=== PATIENT | female | born 1960 | race Caucasian/White ===

== ENCOUNTER 2021-11-27 11:15 | Emergency (ER) | payer OTHER ==
--- NOTE | 2021-11-27 12:26 | ED Physician Documentation ---
PD HPI BACK PAIN - Stated complaint Stated Complaint: LOWER BACK AND LEG PAIN - Chief complaint Chief Complaint: Back Pain - History obtained from History obtained from: Patient - Additional information Additional information: 61-year-old woman had a minor injury about a month ago. She was playing with her grandchildren on an outdoor big toy and kind of bumped into something. Since then she has had severe increasing low back pain radiating to both hips. She feels better bending forward and cannot rotate her pelvis. The pain radiates into both hips and is a burning sensation not associated with weakness, numbness, tingling, saddle anesthesia, incontinence, or fevers. She Yaima had some level of back pain but this is out of proportion to anything she has had before. Currently she has been on very low-dose gabapentin, Celebrex without relief. She is been referred to physical therapy but no openings for physical therapy are open. Review of Systems Constitutional: denies: Fever, Chills Ears: reports: Reviewed and negative Nose: reports: Reviewed and negative Cardiac: reports: Reviewed and negative Respiratory: reports: Reviewed and negative PD PAST MEDICAL HISTORY - Present Medications Home Medications: Ambulatory Orders Medication Instructions Recorded Confirmed Atorvastatin [Lipitor] 10 mg PO DAILY PM 11/27/21 11/27/21 Celecoxib [Celebrex] 200 mg PO DAILY PRN 11/27/21 11/27/21 Cyclobenzaprine HCl 1 - 2 tab PO TID PRN 11/27/21 11/27/21 Gabapentin [Neurontin] 100 mg PO DAILY 11/27/21 11/27/21 Gabapentin [Neurontin] 200 mg PO DAILY PM 11/27/21 11/27/21 Gabapentin [Neurontin] 300 mg PO TID #60 cap 11/27/21 HYDROcod/ACETAM 5/325 [Harmony 5/325] 1 - 2 tab PO Q6H PRN #30 tablet 11/27/21 Lubiprostone [Amitiza] 24 mcg PO ONCE 11/27/21 11/27/21 predniSONE [Deltasone] 20 mg PO [id number] #21 tab 11/27/21 - Allergies Allergies/Adverse Reactions: Allergies Allergy/AdvReac Type Severity Reaction Status Date / Time No Known Drug Allergies Allergy Verified 11/27/21 11:24 PD ED PE NORMAL - Vitals Vital signs reviewed: Yes - General General: Alert and oriented X 3 (Appears slightly uncomfortable and winces with motion of the back.) - Neck Neck: Supple, no meningeal sign, No bony TTP - Abdomen Abdomen: Normal bowel sounds, Soft, Non tender - Back Back: No CVA TTP, No spinal TTP, Other (The patient has equal and normal Achilles and patellar reflexes bilaterally. Normal sensation in all areas of the legs. Patient denies saddle anesthesia. Normal strength in flexion- extension at the ankles, knees, and flexion of the hips.) - Neuro Neuro: Alert and oriented X 3, Normal speech Eye Opening: Spontaneous Motor: Obeys Commands Verbal: Oriented GCS Score: 15 Results - Vitals Vitals: Vital Signs - 24 hr 11/27/21 11:17 Temperature 36.9 C Heart Rate 74 Respiratory 16 Rate Blood Pressure 138/99 H O2 Saturation 99 Oxygen O2 Source Room air PD MEDICAL DECISION MAKING - ED course ED course: Her symptoms are very consistent with spinal stenosis. We discussed pain control and follow-up with spine. No MRI available today, she would like to go ahead with a CAT scan to see what that shows us in the interim. CT of the lumbar spine does show multilevel degenerative disease with foraminal narrowing at multilevels but I think the culprit lesion is the disc herniation at L4/L5 causing moderate central stenosis. She was treated here with IM Dilaudid and Toradol. Given some names of some local neurosurgeons and discussed the expected course of action going forward. I am prescribing a short course of short-acting opioid pain medication for this patient. 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 I have discussed that the opioids are for short term therapy only, and will not be refilled from the ED. Departure - Departure Disposition: 01 Home, Self Care Clinical Impression: Spinal stenosis Condition: Good Record reviewed to determine appropriate education?: Yes Instructions: ED Sciatica Prescriptions: predniSONE [Deltasone] 20 mg PO [id number] #21 tab Gabapentin [Neurontin] 300 mg PO TID #60 cap HYDROcod/ACETAM 5/325 [Harmony 5/325] 1 - 2 tab PO Q6H PRN #30 tablet PRN Reason: Pain Comments: As discussed it is apparent that likely the pain you are having is from the L4/L5 spinal stenosis. It is very reasonable to follow-up with a spine surgeon, either Dr. Otero or Dr. Sandoval as mentioned. I sent your prescriptions electronically to [facility] in [place]. Return for new or worsening symptoms. I am prescribing a short course of narcotic pain medication for you. These are potentially dangerous and addictive medications that should be used carefully. These medications may constipate you. Take an kiam-hrk-yryszgy stool softener (docusate) twice daily with plenty of water while taking these medications. If you go 24 hours without a bowel movement, take nlbh-qjq-vbvtasv miralax, per package instructions. Do not drink or drive while taking these medications. If you received narcotic or sedating medications while in the emergency department, do not drive for 24 hours. Store this medication in a safe, secure place and out of reach of children. It is a violation of federal law to give or sell this medication to another person or to use in a manner other than prescribed. The ED will not refill narcotic prescriptions, including prescriptions lost or stolen. To dispose of unwanted medications: 1. [facility] at [address] in [place] has a medication drop box. They accept prescription medications (in pill form) Sunday through Sunday 9:00 a.m. to 5:00 p.m. 2. [facility] [employer] accepts prescription medications (in pill form only) for disposal year round. Call for more information. 3. Contact the [facility] for the next [facility] sponsored prescription drug collection event. , [phone], or [phone]; Note that many narcotic pain relievers also contain Tylenol/acetaminophen. Please ensure that your total dose of acetaminophen from all sources does not exceed 3 g (3000 mg) per day.
[2021-11-27] MEDS: HYDROmorphone 1 MG/ML CARPUJECT IM STA (12:34)
[2021-11-27] MEDS: KETOROLAC 30 MG/ML VIAL IM STA (12:34)
[2021-11-27] MEDS: predniSONE 20 MG TABLET PO STA (12:34)
--- NOTE | 2021-11-27 12:54 | CT Report ---
PROCEDURE: CT lumbar spine without contrast INDICATIONS: Low back pain with right-sided radiculopathy TECHNIQUE: Noncontrast 3 mm thick sections acquired from the T12 level to the sacrum. Sagittal and coronal refo rmats were constructed. For radiation dose reduction, the following was used: automated exposure co ntrol, adjustment of mA and/or kV according to patient size. COMPARISON: None. FINDINGS: Image quality: Excellent. Bones: There is normal bony alignment. No acute vertebral body compression fractures. No suspiciou s lytic or blastic bony lesions. Central spinal caliber is of normal overall caliber. No pars defec ts. T12-L1: Normal in appearance. L1-L2: Normal in appearance. L2-L3: Normal in appearance. L3-L4: Disc height is maintained. Posterior disc bulge results in mild central stenosis. Mild bilat eral foraminal stenosis L4-L5: Disc height is preserved. Posterior disc bulge and ligamentum flavum laxity results in moder ate central stenosis. Mild bilateral foraminal stenosis L5-S1: Disc space and narrowing with degenerative endplate changes. No central stenosis. Hypertroph ic facet joint results in moderate bilateral foraminal stenosis. Soft tissues: No retroperitoneal masses or hematomas. Visualized aorta is normal in caliber. Janel cystectomy clips and nonobstructive 2 mm left renal calculus noted IMPRESSION: 1. Multilevel degenerative disc disease and arthropathy results in varying degrees of central and for aminal stenosis including moderate central stenosis L4-5 Reviewed by: Rosas Warner MD on 11/27/2021 11:53 AM VENUS Approved by: Rosas Warner MD on 11/27/2021 11:53 AM VENUS Station ID: [id number]
[2021-11-27 13:27] VITALS: BP 125/75
== END 2021-11-27 13:14 | disposition home or self-care (01) ==
LOC: ED 11:15
DX: M48.061 Spinal stenosis, lumbar region without neurogenic claudication (principal)
CPT/HCPCS: 72131; 96372; 99283; 99284; J1170; J7512

== ENCOUNTER 2022-01-04 10:40 | Outpatient (CLI) | payer OTHER ==
--- NOTE | 2022-01-04 16:04 | MRI Report ---
PROCEDURE: Lumbar Spine W/O INDICATIONS: LUMBAR RADICULOPATHY TECHNIQUE: Noncontrast sagittal T1 spin echo and T2 fast echo, sagittal STIR, axial T1 and T2 fast spin echo thr ough the lumbar spine. In cases with scoliosis, additional coronal T2 fast spin echo may be performe d. COMPARISON: None. FINDINGS: Image quality: Excellent. Alignment and Curvature: There is normal bony alignment. Bone Marrow: Modic type I reactive endplate changes noted adjacent to the L5-S1 disc. No acute verteb ral body compression fractures. Spinal Cord: Conus medullaris terminates at the L1 level. Visualized cord demonstrates normal signa l and size. Paraspinous Soft Tissues: No paravertebral masses. T12-L1: Normal in appearance. L1-L2: Normal in appearance. L2-L3: Loss of disc signal. Mild, diffuse disc bulge. No central stenosis. No neuroforaminal narro wing. No neural compression. L3-L4: Loss of disc signal. Mild, diffuse disc bulge. Mild narrowing of the central canal. No neura l foraminal narrowing. No neural compression. L4-L5: Loss of disc signal. Mild, diffuse disc bulge. Mild bilateral facet hypertrophy. Mild narrow ing of the central canal. Mild bilateral neural foraminal narrowing. No neural compression. L5-S1: Loss of disc signal and height. Mild, diffuse disc bulge. Small right foraminal disc protrus ion. Mild bilateral facet hypertrophy. No central stenosis. Severe right and moderate to severe left neuroforaminal narrowing with compression of the exiting right L5 nerve root and slight compression o f exiting left L5 nerve root Left S2-S3 Tarlov cyst. IMPRESSION: 1. Multilevel degenerative disc disease. 2. Multilevel facet arthropathy. 3. No severe central canal narrowing. 4. Severe right and moderate to severe left L5-S1 neural foraminal narrowing with compression of the exiting L5 nerve roots. Reviewed by: Mikki Donald MD, PhD on 01/04/2022 4:02 PM PDT Approved by: Mikki Donald MD, PhD on 01/04/2022 4:02 PM PDT Station ID: [id number]
== END 2022-01-04 10:41 | disposition home or self-care (01) ==
LOC: DI 10:40
PROVIDERS: ATTEND Nurse Practitioner
DX: M51.17 Intervertebral disc disorders with radiculopathy, lumbosacral region (principal); M47.816 Spondylosis without myelopathy or radiculopathy, lumbar region; M48.07 Spinal stenosis, lumbosacral region; M47.27 Other spondylosis with radiculopathy, lumbosacral region

== ENCOUNTER 2022-05-24 12:24 | Outpatient (CLI) | payer OTHER ==
--- NOTE | 2022-06-01 12:53 | Mammography Report ---
BILATERAL DIGITAL SCREENING MAMMOGRAM 3D/2D: 05/24/2022 CLINICAL: Routine screening. No prior exams were available for comparison. Both breasts are almost entirely fatty (category a/<25% glandular tissue). There is a focal asymmetry with an obscured margin in the right breast at 12 o'clock posterior depth. There also is a focal asymmetry with an obscured margin in the right breast at 2 o'clock middle depth . There is a focal asymmetry with an obscured margin in the left breast at 1 o'clock middle depth. No other significant masses or calcifications are seen in either breast. IMPRESSION: INCOMPLETE: NEEDS ADDITIONAL IMAGING EVALUATION The focal asymmetry in the right breast at 12 o'clock posterior depth is indeterminate. Additional v iews with possible ultrasound are recommended. The focal asymmetry in the right breast at 2 o'clock middle depth is indeterminate. Additional views with possible ultrasound are recommended. The focal asymmetry in the left breast at 1 o'clock middle depth is indeterminate. Additional views with possible ultrasound are recommended. Based on the Tyrer Cuzick model (a risk assessment model) the patients lifetime risk is 3.6% and her 10 year risk is 1.5%. According to the ACR, ACS, and NCCN guidelines, an annual breast MRI exam gloria g with mammogram is recommended if the patients lifetime risk is 20% or greater. This exam was interpreted at Station ID: [id number]. NOTE: For mammograms, a report in lay terms will be sent to the patient. Approximately 15% of breast malignancies will not be visualized mammographically. In the management of a palpable breast mass, a negative mammogram must not discourage biopsy of a clinically suspicious lesion. Electronically Signed By: Donnell Kan M.D., jr/tiana:05/31/2022 11:02:51 ACR BI-RADS Category 0: Incomplete 3340F PARENCHYMAL PATTERN: (F) - The breast(s) demonstrate(s) diffuse fatty replacement. BI-RADS CATEGORY: (0) - 0 Mammo and [place] [id number] Immediate follow-up LATERALITY: (B)
== END 2022-05-24 12:25 | disposition home or self-care (01) ==
LOC: DI.N 12:24
DX: Z12.31 Encounter for screening mammogram for malignant neoplasm of breast (principal); R92.8 Other abnormal and inconclusive findings on diagnostic imaging of breast

== ENCOUNTER 2022-08-29 14:11 | Outpatient (CLI) | payer OTHER ==
[2022-08-29 17:45] LABS: BASOPHILS # (AUTO) 0.1 10^3/uL (0.0-0.1); BASOPHILS % (AUTO) 1.4 %; EOSINOPHILS # (AUTO) 0.2 10^3/uL (0.0-0.7); EOSINOPHILS % (AUTO) 3.9 %; HCT - HEMATOCRIT 41.9 % (37.0-47.0); HGB - HEMOGLOBIN 13.5 g/dL (12.0-16.0); LYMPHOCYTES # (AUTO) 1.3 10^3/uL (1.5-3.5); LYMPHOCYTES % (AUTO) 30.5 %; MEAN CORPUSCULAR HEMOGLOBIN 28.6 pg (27.0-31.0); MEAN CORPUSCULAR HGB CONC 32.2 g/dL (32.0-36.0); MEAN CORPUSCULAR VOLUME 88.8 fL (81.0-99.0); MEAN PLATELET VOLUME 10.6 fL (7.9-10.8); MONOCYTES # (AUTO) 0.5 10^3/uL (0.0-1.0); NEUTROPHILS # (AUTO) 2.3 10^3/uL (1.5-6.6); NEUTROPHILS % (AUTO) 52.2 %; PLT - PLATELET COUNT 268 10^3/uL (130-450); RED BLOOD COUNT 4.72 10^6/uL (4.20-5.40); RED CELL DISTRIBUTION WIDTH 13.1 % (12.0-15.0); WHITE BLOOD COUNT 4.4 x10^3/uL (4.8-10.8)
[2022-08-29 18:20] LABS: ALBUMIN 4.6 g/dL (3.2-5.5); ALBUMIN/GLOBULIN RATIO 1.5 (1.0-2.2); BILIRUBIN,TOTAL 0.7 mg/dL (0.2-1.0); CALCIUM 9.8 mg/dL (8.5-10.3); CREATININE 0.8 mg/dL (0.4-1.0); POTASSIUM 4.1 mmol/L (3.5-5.0); TOTAL PROTEIN 7.7 g/dL (6.7-8.2)
[2022-08-29 18:25] LABS: THYROID STIMULATING HORMONE 2.94 uIU/mL (0.34-5.60)
[2022-08-29 18:29] LABS: FERRITIN 126.4 ng/mL (11.0-306.8)
== END 2022-08-29 14:12 | disposition home or self-care (01) ==
LOC: LAB.N 14:11
PROVIDERS: ATTEND Nurse Practitioner
DX: K59.09 Other constipation (principal); R53.83 Other fatigue
CPT/HCPCS: 36415; 80053; 82728; 83540; 84443; 84466; 85025

== ENCOUNTER 2022-12-19 07:52 | Outpatient (CLI) | payer OTHER ==
[2022-12-19 11:43] LABS: BASOPHILS # (AUTO) 0.1 10^3/uL (0.0-0.1); BASOPHILS % (AUTO) 1.7 %; EOSINOPHILS # (AUTO) 0.2 10^3/uL (0.0-0.7); HCT - HEMATOCRIT 41.2 % (37.0-47.0); HGB - HEMOGLOBIN 13.1 g/dL (12.0-16.0); LYMPHOCYTES # (AUTO) 1.4 10^3/uL (1.5-3.5); LYMPHOCYTES % (AUTO) 35.5 %; MEAN CORPUSCULAR HEMOGLOBIN 28.1 pg (27.0-31.0); MEAN CORPUSCULAR HGB CONC 31.8 g/dL (32.0-36.0); MEAN CORPUSCULAR VOLUME 88.2 fL (81.0-99.0); MEAN PLATELET VOLUME 10.6 fL (7.9-10.8); MONOCYTES # (AUTO) 0.5 10^3/uL (0.0-1.0); MONOCYTES % (AUTO) 11.7 %; NEUTROPHILS # (AUTO) 1.9 10^3/uL (1.5-6.6); NEUTROPHILS % (AUTO) 45.9 %; PLT - PLATELET COUNT 292 10^3/uL (130-450); RED BLOOD COUNT 4.67 10^6/uL (4.20-5.40); RED CELL DISTRIBUTION WIDTH 13.2 % (12.0-15.0)
[2022-12-19 12:27] LABS: THYROID STIMULATING HORMONE 3.31 uIU/mL (0.34-5.60)
[2022-12-19 12:28] LABS: ALBUMIN 4.1 g/dL (3.2-5.5); ALBUMIN/GLOBULIN RATIO 1.4 (1.0-2.2); BILIRUBIN,TOTAL 0.5 mg/dL (0.2-1.0); CALCIUM 9.2 mg/dL (8.5-10.3); CREATININE 0.5 mg/dL (0.4-1.0); POTASSIUM 4.5 mmol/L (3.5-5.0)
[2022-12-19 12:30] LABS: FERRITIN 97.7 ng/mL (11.0-306.8)
== END 2022-12-19 07:53 | disposition home or self-care (01) ==
LOC: LAB.N 07:52
PROVIDERS: ATTEND Nurse Practitioner
DX: L65.9 Nonscarring hair loss, unspecified (principal)
CPT/HCPCS: 36415; 80053; 82728; 83540; 84443; 84466; 85025

== ENCOUNTER 2023-07-18 15:36 | Outpatient (CLI) | payer OTHER ==
--- NOTE | 2023-07-19 10:20 | Mammography Report ---
BILATERAL DIGITAL SCREENING MAMMOGRAM 3D/2D: 07/18/2023 CLINICAL: Routine screening. Comparison is made to exams dated: 06/19/2022 mammogram and 05/24/2022 mammogram - [facility]. Both breasts are heterogeneously dense, which may obscure small masses (category c / 51-75% glandular tissue). No significant masses, calcifications, or other findings are seen in either breast. There has been no significant interval change. IMPRESSION: NEGATIVE There is no mammographic evidence of malignancy. A 1 year screening mammogram is recommended. Based on the Tyrer Cuzick model (a risk assessment model) the patients lifetime risk is 8.1% and her 10 year risk is 3.8%. According to the ACR, ACS, and NCCN guidelines, an annual breast MRI exam gloria g with mammogram is recommended if the patients lifetime risk is 20% or greater. This exam was interpreted at Station ID: [id number]. NOTE: For mammograms, a report in lay terms will be sent to the patient. Approximately 15% of breast malignancies will not be visualized mammographically. In the management of a palpable breast mass, a negative mammogram must not discourage biopsy of a clinically suspicious lesion. Electronically Signed By: Louis mcnally/tiana:07/19/2023 07:55:24 letter sent: No_Letter ACR BI-RADS Category 1: Negative 3341F PARENCHYMAL PATTERN: (D) - The breast(s) demonstrate(s) heterogeneously dense fibroglandular iraida puri. BI-RADS CATEGORY: (1) - 1 Mammogram [id number] 1 year screening LATERALITY: (B)
== END 2023-07-18 15:37 | disposition home or self-care (01) ==
LOC: DI.N 15:36
PROVIDERS: ATTEND Nurse Practitioner
DX: Z12.31 Encounter for screening mammogram for malignant neoplasm of breast (principal); R92.333 Mammographic heterogeneous density, bilateral breasts

== ENCOUNTER 2023-12-28 08:07 | Outpatient (CLI) | payer OTHER ==
--- NOTE | 2023-12-28 15:45 | CT Report ---
PROCEDURE: Chest WO INDICATIONS: LUNG NODULE TECHNIQUE: A CT scan of the chest was performed. Intravenous contrast media was not administered. Images were re corded and evaluated at appropriate window settings. Reformats: axial MIP of the chest, coronal and s agittal. For radiation dose reduction, the following was used: automated exposure control, adjustment of mA and/or kV according to patient size. COMPARISON: None. FINDINGS: Image quality: Diagnostic. Chest wall and lower neck: No thyroid nodule which requires sonographic follow up. No axillary or sup raclavicular adenopathy by size. Lungs and pleura: No consolidation. No pleural effusions. No pneumothorax. Scattered sub-6 mm pulmon jeremi nodules with index nodules as follows: -2-3 mm solid pulmonary nodule in the right middle lobe (4/50, MIP image 75) -4 mm triangular-shaped subpleural nodule (4/57, MIP 84). Mediastinum: Heart size is normal. No pericardial effusion. No large vessel abnormality. No mediastin al adenopathy by size criteria. Bones: No aggressive osseous abnormality. Upper Abdomen: Unremarkable. IMPRESSION: Scattered sub-6 mm pulmonary nodules. If patient is high risk for lung malignancy, recommend follow-u p CT chest in 12 months to demonstrate stability per Fleischner Society guidelines. Reviewed by: Carly Arreguin MD, PhD on 12/28/2023 3:43 PM PDT Approved by: Carly Arreguin MD, PhD on 12/28/2023 3:43 PM PDT Station ID: [id number]
== END 2023-12-28 08:08 | disposition home or self-care (01) ==
LOC: DI 08:07
PROVIDERS: ATTEND Nurse Practitioner
DX: R91.8 Other nonspecific abnormal finding of lung field (principal)

== ENCOUNTER 2024-04-20 10:26 | Emergency (ER) | payer OTHER ==
--- NOTE | 2024-04-20 12:42 | ED Physician Documentation ---
PD HPI BACK PAIN - Stated complaint Stated Complaint: RT HIP/LOWER BACK PX - Chief complaint Chief Complaint: Ext Problem - History obtained from History obtained from: Patient, Family (spouse) - History of Present Illness Timing - onset: How many days ago (6) Timing - duration: Days (6) Timing - details: Abrupt onset (has chronic low back pain with sacral nerve mainly. On meds of celebrex and gabapentin daily, with tylenol prn. Increased and steadily worse pain after falling/sitting abruptly when getting up from wooden deck lounge chair (so stradding it with legs, and as getting up, slipped and fell/sat force.) Location: Lower, Right Quality: Pain, Spasm, Aching Associated symptoms: No: Fever, Weakness, Numbness, Incontinent of urine Worsened by: Movement, Twisting Review of Systems Constitutional: denies: Fever, Chills : denies: Dysuria Skin: denies: Rash Neurologic: reports: Numbness (at times to right lateral thigh but not to foot. Has had this previously and not just acutely.). denies: Focal weakness PD PAST MEDICAL HISTORY - Past Medical History Past Medical History: Yes GI: Other HEENT: Glaucoma - Past Surgical History General: Cholecystectomy, Hiatal hernia repair /ASSEMBLER TESTER: section, Hysterectomy - Present Medications Home Medications: Ambulatory Orders Medication Instructions Recorded Confirmed Celecoxib [Celebrex] 200 mg PO DAILY PRN 11/27/21 04/20/24 Cyclobenzaprine HCl 1 - 2 tab PO TID PRN 11/27/21 04/20/24 Lubiprostone [Amitiza] 24 mcg PO PRN PRN 11/27/21 04/20/24 Gabapentin [Neurontin] 600 mg PO DAILY 04/20/24 04/20/24 Oxycodone HCl/Acetaminophen 1 each PO Q6H PRN #20 tablet 04/20/24 [Percocet 5-325 mg Tablet] dexAMETHasone [Decadron] 4 mg PO DAILY #7 tablet 04/20/24 - Allergies Allergies/Adverse Reactions: Allergies Allergy/AdvReac Type Severity Reaction Status Date / Time No Known Drug Allergies Allergy Verified 04/20/24 10:43 - Social History Does the pt smoke?: No Smoking Status: Never smoker PD ED PE NORMAL - General General: Alert and oriented X 3, Well developed/nourished, Other (appears in severe pain and crying, worse with movement of hip/pelvis. ) - Back Back: Other (tender sacral and right SI areas to palpation. Laterla hip not tender per se. ) - Derm Derm: Normal color, Warm and dry, No rash - Neuro Neuro: Alert and oriented X 3, No motor deficit, No sensory deficit Results - Vitals Vitals: Vital Signs - 24 hr 04/20/24 04/20/24 04/20/24 12:59 14:00 15:27 Temperature Heart Rate 48 L 46 L 60 Respiratory 16 15 14 Rate Blood Pressure 108/50 L 125/63 113/63 O2 Saturation 100 100 98 04/20/24 04/20/24 04/20/24 16:50 18:00 18:16 Temperature 36.6 C Heart Rate 53 L 59 L 55 L Respiratory 15 16 15 Rate Blood Pressure 115/76 113/70 100/53 L O2 Saturation 99 100 99 Oxygen O2 Source Room air - Rads (name of study) pelvic CT Relevant Findings:: Prelim report reviewed (arthritic changes. No acute fracture/abnormliaty.), EMP independent interpretation of test PD Medical Decision Making - ED course Complexity details: reviewed results (no acute findings/fractures on CT. arthritic/DDD changes noted chronically. ), re-evaluated patient (had not forceful impact but did impact with worse pain so got CT to eval for buckle/compression type fractures/etc. No acute findings on CT. Pt has improved pain to baseline level at rest and some over baseline with movement after meds here, but much reduced from presentation. Comfortable with home.), considered differential (chronic pain at S1 area and gets steroid injections every few months, due for next May 05. Sat abruptly when getting up from wooden deck lounge chair, with impact to area from about 1-2 feet as getting up. Worse pain than baseline.), d/w patient, d/w family (spouse) Drug Therapy Requiring Monitoring for Toxicity: due to severity of pain, shared decision with pt is to start IV and give several meds, including Dilaudid, Toradl, steroid. Titrated with repeat dose Dilaudid until improved reasonably to baseline. ED course: she takes gabapentin 300 mg daily and Celebrex 200 mg daily at baseline. Got Rx for Tizanidine and told to increase gabapentin to 600 mg I would suggest she split it to 300 mg bid instead. Continue tizanidine as likely to be some pelvic spasming going on. However would need to increase to short term opiate meds given the degree of pain over baseline. She is okay with that. To call her back specialist. Give oral dosing of steroids to try to help as well. I do not feel that would negate getting her usual steroid injection in 2 weeks. To increase her miralax to BID at least while adding opiates. Continue the lactulose. Departure - Departure Disposition: 01 Home, Self Care Clinical Impression: Acute exacerbation of chronic low back pain, History of recent fall Condition: Stable Record reviewed to determine appropriate education?: Yes Follow-Up: Mackenzie Hernandez ARNP [Primary Care Provider] - Prescriptions: dexAMETHasone [Decadron] 4 mg PO DAILY #7 tablet Oxycodone HCl/Acetaminophen [Percocet 5-325 mg Tablet] 1 each PO Q6H PRN #20 tablet PRN Reason: pain Comments: Your CT scan shows some chronic changes in arthritic in the lower spine, particularly L5-S1 levels. No signs of new fractures or injury related to your fall. However you can flareup the irritation of the nerve roots that you have had and also the discs etc. I would have you continue with the increased gabapentin but I would suggest going 300 mg twice a day rather than all of it at once a day. Continue with your Celexa sib. I would add Decadron steroid anti-inflammatory daily for the next week as well. You can use the muscle relaxant prescribed to you by the walk-in clinic. Is not clear that there is muscle spasms to the area so it may not have a marked benefit. Add Tylenol/acetaminophen 500 650 mg 4 times daily regularly for the next several days to week and atop that oxycodone every 4-6 hours if needed for worse pain. Contact your primary care or your back specialist about this flareup episode. See if they want to see you sooner than your planned appointment for injection at the end of the month. I sent your prescription to [facility] in [place]. I would increase your stool softeners when you are adding on the opiate. Plan on just taking the MiraLAX twice daily over the next week or 2. Continue your other lactulose as well. I am prescribing a short course of narcotic pain medication for you. These are potentially dangerous and addictive medications that should be used carefully. These medications may constipate you. Take an gver-bpe-fqgzcxg stool softener such as docusate twice daily with plenty of water while taking these medications. If you go 24 hours without a bowel movement, take ivbz-lvj-osbthfk MiraLAX, per package instructions. Do not drink or drive while taking these medications. If you received narcotic or sedating medications while in the emergency department do not drive for 24 hours. Store this medication in a safe, secure place and out of reach of children. It is a violation of federal law to give or sell this medication to another person or to use in a manner other than prescribed. The ED will not refill narcotic prescriptions, including prescriptions lost or stolen. You can dispose of unwanted medications at the [facility]'s office or at several pharmacies such as [facility]. Forms: PCP List Discharge Date/Time: 04/20/24 18:18
[2024-04-20] MEDS: DEXAMETHASONE 10 MG/ML VIAL IVP STA (13:28)
[2024-04-20] MEDS: KETOROLAC 15 MG/ML VIAL IVP STA (13:28)
[2024-04-20] MEDS: HYDROmorphone 1 MG/ML CARPUJECT IVP STA ×2 (13:29→14:23)
[2024-04-20] MEDS: SODIUM CHLORIDE 0.9% 1,000 ML IV STA (13:29)
[2024-04-20] MEDS: ONDANSETRON 4 MG/2 ML VIAL IVP STA (15:22)
--- NOTE | 2024-04-20 16:24 | CT Report ---
PROCEDURE: Pelvis WO INDICATIONS: short fall onto gluteal area; pain pelvis TECHNIQUE: Noncontrast 3 mm axial sections acquired through the bony pelvis, with coronal and sagittal reformatt ing. For radiation dose reduction, the following was used: automated exposure control, adjustment of mA and/or kV according to patient size. COMPARISON: None. FINDINGS: Image quality: Diagnostic. Bones: Visualized osseous structures appear intact. No acute fracture identified. Bony pelvis appear s intact. No acute compression fractures of the imaged spine. Moderate degenerative changes of the lo wer lumbar spine most severe at L5-S1. Minimal degenerative changes of the bilateral hips. No suspici ous osseous lesions. Soft tissues: No soft tissue abnormalities identified. Unremarkable appearance of the retroperitonea l structures of the pelvis. No pelvic adenopathy. Urinary bladder is normal in appearance. No suspici ous soft tissue mass. No abnormal focal fluid collection. IMPRESSION: CT pelvis without acute fracture or dislocation. Degenerative changes of the lower lumbar spine most severe at L5-S1. There is persistent clinical concern for occult fracture, MRI would be more sensitive for evaluation. Reviewed by: Dave Reynolds MD on 04/20/2024 3:23 PM VENUS Approved by: Dave Reynolds MD on 04/20/2024 3:23 PM VENUS Station ID: [id number]
[2024-04-20 16:53] VITALS: O2SAT 99
[2024-04-20] MEDS: oxyCODONE/ACET 5/325 Prepack 4 PO STA (18:08)
[2024-04-20 18:24] VITALS: BP 100/53
== END 2024-04-20 18:18 | disposition home or self-care (01) ==
LOC: ED 10:26
DX: M54.50 Low back pain, unspecified (principal); G89.29 Other chronic pain; W22.03XA Walked into furniture, initial encounter; Y93.89 Activity, other specified
CPT/HCPCS: 72192; 96374; 96375; 96376; 99284; 99285; J1170